=== PATIENT | female | born 1990 | race Caucasian/White ===

== ENCOUNTER 2020-03-06 06:23 | Day surgery (SDC) | payer OTHER, SELFPAY ==
--- NOTE | 2020-03-06 | FL_ITS ---
EXAMINATION: XR LUMBAR PUNCTURE CLINICAL INFORMATION: Headache. Pseudotumor cerebri. COMPARISON: None. TECHNIQUE: Following explaining fluoroscopy-guided lumbar puncture procedure, benefits and risks, a written consent was obtained. Patient was placed prone on fluoroscopy table. The low back area was cleaned and draped in usual sterile manner 2% chlorhexidine solution. 1% lidocaine was injected overlying the L4-L5 disc level. A 20-gauge 6-inch long needle was inserted from the skin intrathecally and the left para midline position under fluoroscopy. After observing fluid return following removal of the stylet, patient was quickly placed in left lateral decubitus view and opening CSF pressure was obtained. Fluid was then collected in 4 test tubes. Postprocedure stylet was reintroduced and needle withdrawn. Patient tolerated procedure extremely well. Sterile band aid applied postprocedure. FINDINGS: 2 images were obtained. The vertebral heights, alignment of the visualized images are normal. The disc height is preserved. Needle is positioned intrathecally at the L4-L5 disc level. Opening CSF pressure measured 13 cm/water. Approximately 13 mL of clear CSF fluid collected in 4 test tubes. This fluid was sent to lab as per referring physician's orders. FLUOROSCOPY TIME: 0.3 minutes. DOSE AREA PRODUCT: 6.300 uGy-m2 (microgray-meter squared). FL/FL guided lumbar puncture LP IMPRESSION: Successful ultrasound-guided lumbar puncture performed. Opening CSF pressure 13 cm/water. 13 mL of clear CSF fluid collected in 4 test tubes and sent to lab.
[2020-03-06 06:50] LABS: MANUAL DIFF FLAG NO
[2020-03-06 06:55] VITALS: BMI 42.0
[2020-03-06 06:58] VITALS: BP 126/82; PULSE 96; RESP 16; TEMP 36.7; O2SAT 97
[2020-03-06 07:11] LABS: Basophils Percent Auto 0.4 % (0-2); Eosinophils Absolute Auto 0.1 X10*3/uL (0.0-0.4); Eosinophils Percent Auto 1.9 % (0-4); Hematocrit 39.1 % (37-47); Hemoglobin 12.9 g/dl (12.0-16.0); Imm Gran Abs Auto 0.03 X10*3/uL (0.00-0.03); Imm Gran Pct Auto 0.4 % (0.0-0.4); Lymphocytes Absolute Auto 2.1 X10*3/uL (1.2-4.9); Lymphocytes Percent Auto 27.5 % (20-40); Mean Corpuscular Hemoglobin 27.7 pg (27.0-33.0); Mean Corpuscular Volume 84.1 fL (80-98); Mean Platelet Volume 9.2 fL (9.4-12.3); Monocytes Absolute Auto 0.4 X10*3/uL (0.1-1.2); Monocytes Percent Auto 5.4 % (2-11); Neutrophils Absolute Auto 4.8 X10*3/uL (2.0-8.3); Neutrophils Percent Auto 64.4 % (45-73); Platelet Count 315 X10*3/uL (160-400); Red Blood Count 4.65 X10*6/uL (4.20-5.50); Red Cell Distribution Width 13.1 % (11.0-16.0); White Blood Count 7.5 X10*3/uL (4.8-10.8)
[2020-03-06 07:16] LABS: INTERNATIONAL NORM RATIO 1.1 (0.9-1.1); Prothrombin Time 12.8 SEC (10.8-13.0)
[2020-03-06 07:19] LABS: Partial Thromboplastin Time 40.1 SEC (24.1-38.0)
[2020-03-06 08:36] LABS: UPreg QC Valid YES; Urine Pregnancy NEGATIVE (NEGATIVE)
--- NOTE | 2020-03-06 08:45 | PC.NURSE ---
PATIENT OFF UNIT TO RAD DEPARTMENT. URINE SAMPLE WAS PENDING. PATIENT HAS HER PERIOD AT THIS TIME. PINK TINGED URINE. NO OTHER COMPLAINTS.
--- NOTE | 2020-03-06 09:39 | HO.RADPN ---
RADIOLOGY Narrative Narrative: L4-5 lumbar puncture done without immediate complications. Approx 13.5 ml clear csf collected. Opening CSF press 13 cm/H2O
[2020-03-06 11:16] LABS: Appearance CSF CLEAR; CSF Tube # 2
[2020-03-06 11:27] LABS: Glucose CSF 55 mg/dL; Total Protein CSF 26.4 mg/dL (15-45)
[2020-03-06 11:38] LABS: CSF Monos 0 %; CSF Other Cells % 0 %; CSF Tube # 3; CSF Volume 3.5 ML; Color CSF COLORLESS; Lymphocytes CSF 0 %; Neutrophils CSF 0 %; Red Blood Cell CSF 0 MM*3; White Blood Cell CSF 0 MM*3
== END 2020-03-06 12:25 | disposition home or self-care (01) ==
PROVIDERS: Radiology Diagnostic Radiology; PCP Internal Medicine; Visit Provider Psychiatry & Neurology Neurology
PROC: 009U3ZZ Drainage of Spinal Canal, Percutaneous Approach (ICD-10-PCS; CPT 62270; principal; 2020-03-06 08:00)
DX: G93.2 Benign intracranial hypertension (principal); G43.909 Migraine, unspecified, not intractable, without status migrainosus; Z88.0 Allergy status to penicillin; Z88.2 Allergy status to sulfonamides
CPT/HCPCS: 36415; 62328; 81025; 82945; 84157; 85025; 85610; 85730; 87015; 87070; 87205; 89051

== ENCOUNTER → 2022-03-26 14:48 | Outpatient (BNVA) | payer MEDICARE, MEDICAID, SELFPAY | PROVIDERS: PCP Internal Medicine; Visit Provider Student in an Organized Health Care Education/Training Program | DX: M79.7 Fibromyalgia (principal); M70.61 Trochanteric bursitis, right hip; M70.62 Trochanteric bursitis, left hip; M48.061 Spinal stenosis, lumbar region without neurogenic claudication | CPT/HCPCS: 20610; 99202 ==

== ENCOUNTER → 2022-09-13 10:09 | Outpatient (BNVA) | payer MEDICARE, MEDICAID, SELFPAY | PROVIDERS: PCP Internal Medicine; Visit Provider Internal Medicine | DX: M70.61 Trochanteric bursitis, right hip (principal); M70.62 Trochanteric bursitis, left hip; M79.7 Fibromyalgia; G43.909 Migraine, unspecified, not intractable, without status migrainosus; G93.2 Benign intracranial hypertension | CPT/HCPCS: 99202 ==

== ENCOUNTER 2022-11-30 09:38 | Day surgery (SDC) | payer MEDICARE, MEDICAID, SELFPAY ==
--- NOTE | ~2022-11-30 | FL_ITS ---
EXAMINATION: XR LUMBAR PUNCTURE CLINICAL INFORMATION: Headache. Pseudotumor cerebri. COMPARISON: 03/06/2020. TECHNIQUE: Following explaining fluoroscopy-guided lumbar puncture procedure, benefits and risks, a written consent was obtained. Patient was placed prone on fluoroscopy table. The low back area was cleaned and draped in usual sterile manner 2% chlorhexidine solution. 1% lidocaine was injected overlying the L4-L5 disc level. A 20-gauge 6-inch long needle was inserted from the skin intrathecally and the left para midline position under fluoroscopy. After observing fluid return following removal of the stylet, opening CSF pressure was obtained. Fluid was then collected in 4 test tubes. Postprocedure stylet was reintroduced and needle withdrawn. Patient tolerated procedure extremely well. Sterile band aid applied postprocedure. FINDINGS: 1 image was obtained. The vertebral heights, alignment of the visualized images are normal. The disc height is preserved. Needle is positioned intrathecally at the L4-L5 disc level. Opening CSF pressure measured 9 cm/water. Approximately 11.5 mL of clear CSF fluid collected in 4 test tubes. This fluid was sent to lab as per referring physician's orders. FLUOROSCOPY TIME: 0.3 minutes. DOSE AREA PRODUCT: 2.9 uGy-m2 (microgray-meter squared). FL/FL guided lumbar puncture LP IMPRESSION: Successful ultrasound-guided lumbar puncture performed. Opening CSF pressure 9 cm/water. 11.5 mL of clear CSF fluid collected in 4 test tubes and sent to lab.
[2022-11-30 10:05] VITALS: BMI 39.3
[2022-11-30 10:07] LABS: MANUAL DIFF FLAG NO
[2022-11-30 10:09] LABS: Basophils Percent Auto 0.3 % (0-2); Eosinophils Absolute Auto 0.1 X10*3/uL (0.0-0.4); Eosinophils Percent Auto 1.4 % (0-4); Hematocrit 43.5 % (37.0-47.0); Hemoglobin 14.1 g/dl (12.0-16.0); Imm Gran Abs Auto 0.05 X10*3/uL (0.00-0.03); Imm Gran Pct Auto 0.6 % (0.0-0.4); Lymphocytes Absolute Auto 1.7 X10*3/uL (1.2-4.9); Lymphocytes Percent Auto 21.6 % (20-40); Mean Corpuscular HGB Conc 32.4 g/dl (31.0-35.0); Mean Corpuscular Hemoglobin 26.4 pg (27.0-33.0); Mean Corpuscular Volume 81.5 fL (80.0-98.0); Mean Platelet Volume 8.7 fL (9.4-12.3); Monocytes Absolute Auto 0.4 X10*3/uL (0.1-1.2); Monocytes Percent Auto 5.5 % (2-11); Neutrophils Absolute Auto 5.5 x10*3/uL (2.0-8.3); Neutrophils Percent Auto 70.6 % (45-73); Platelet Count 397 X10*3/uL (160-400); Red Blood Count 5.34 X10*6/uL (4.20-5.50); Red Cell Distribution Width 13.7 % (11.0-16.0); White Blood Count 7.8 X10*3/uL (4.8-10.8)
[2022-11-30 10:16] LABS: INTERNATIONAL NORM RATIO 1.1 (0.9-1.1); Prothrombin Time 12.3 SEC (10.0-13.1)
[2022-11-30 10:27] LABS: UPreg QC Valid YES; Urine Pregnancy NEGATIVE (NEGATIVE)
[2022-11-30 10:33] LABS: Anion Gap 13 (12-20); Carbon Dioxide 26 mmol/L (22-29); Chloride 102 mmol/L (96-108); Potassium 4.4 mmol/L (3.3-5.1); Sodium 137 mmol/L (135-145)
[2022-11-30 11:55] VITALS: BP 125/72; PULSE 87; RESP 16; TEMP 36.4; O2SAT 99
[2022-11-30 12:10] VITALS: BP 118/77; PULSE 88; RESP 14; O2SAT 99
[2022-11-30 12:25] VITALS: BP 130/77; PULSE 81; RESP 16; O2SAT 99
[2022-11-30 12:40] VITALS: BP 117/78; PULSE 89; RESP 15; O2SAT 99
[2022-11-30 12:55] VITALS: BP 125/80; PULSE 87; RESP 14; O2SAT 100
[2022-11-30 13:10] VITALS: BP 122/78; PULSE 89; RESP 16; TEMP 36.5; O2SAT 99
== END 2022-11-30 13:38 | disposition home or self-care (01) ==
PROVIDERS: Radiology Diagnostic Radiology; Student in an Organized Health Care Education/Training Program; PCP Internal Medicine; Visit Provider Psychiatry & Neurology Neurology
PROC: 009U3ZZ Drainage of Spinal Canal, Percutaneous Approach (ICD-10-PCS; CPT 62270; principal; 2022-11-30 11:00)
DX: G93.2 Benign intracranial hypertension (principal); G43.909 Migraine, unspecified, not intractable, without status migrainosus; F41.9 Anxiety disorder, unspecified; J45.909 Unspecified asthma, uncomplicated; R55 Syncope and collapse; Z79.899 Other long term (current) drug therapy
CPT/HCPCS: 36415; 62328; 80051; 81025; 82945; 84157; 85025; 85610; 85730; 89051

== ENCOUNTER → 2022-11-30 10:50 | Outpatient (BNV) | payer MEDICARE, MEDICAID, SELFPAY | PROVIDERS: PCP Internal Medicine; Visit Provider Student in an Organized Health Care Education/Training Program | DX: G93.2 Benign intracranial hypertension (principal); R51.9 Headache, unspecified | CPT/HCPCS: 62328 ==